=== PATIENT | female | born 1960 | race Caucasian/White ===

== ENCOUNTER 2018-05-08 05:49 | Inpatient (IN) | payer OTHER ==
[~2018-05-08] VITALS: Ht 165.1 cm; Wt 96.8 kg
[~2018-05-08 05:49] MED LIST: CHOL200052 PO; CYAN1TAB52 SL; DULO30CA2 PO
[2018-05-08] MEDS ORDERED: LACTATED RINGERS 1,000 ML IV SCH (06:36)
[2018-05-08] MEDS ORDERED: BUPIVACAINE/PF-EPI 0.5% 1:200K ONE (06:53)
[2018-05-08] MEDS ORDERED: BACITRACIN ZINC OINT 500U/GM, 0.9 GM ONE (06:53)
[2018-05-08] MEDS ORDERED: BACITRACIN 50,000 UNIT ONE (06:54)
[2018-05-08] MEDS ORDERED: LORazepam 2 MG/ML, 1ML IVPush PRN (07:00)
[2018-05-08] MEDS ORDERED: OXYcodone 5 MG/5 ML ORAL.SOL UDC PO PRN (07:00)
[2018-05-08] MEDS ORDERED: ONDANSETRON ODT 8 MG PO ONE (07:00)
[2018-05-08] MEDS ORDERED: GABAPENTIN 300 MG CAPSULE PO ONE (07:00)
[2018-05-08] MEDS ORDERED: FENTANYL PF 100 MCG/2ML IV PRN (07:00)
[2018-05-08] MEDS ORDERED: MIDAZOLAM 1 MG/ML, 2ML IV PRN (07:00)
[2018-05-08] MEDS ORDERED: ACETAMINOPHEN 500 MG TABLET PO ONE (07:00)
[2018-05-08] MEDS ORDERED: LABETALOL 5MG/ML, 20ML IV PRN (07:00)
[2018-05-08] MEDS ORDERED: ALBUTEROL SULFATE 2.5 MG/3 ML NPPB PRN (07:00)
[2018-05-08] MEDS ORDERED: MORPHINE SULFATE 4 MG/ML, 1ML IVPush PRN (07:00)
[2018-05-08] MEDS ORDERED: HYDROmorphone 1 MG/ML, 1ML IV PRN (07:00)
[2018-05-08] MEDS ORDERED: hydrALAzine 20 MG/ML, 1ML IV PRN (07:00)
[2018-05-08] MEDS ORDERED: SCOPOLAMINE PATCH, 1.5MG PATCH.TD72 TD PRN (07:00)
[2018-05-08] MEDS ORDERED: DIAZEPAM 5 MG/ML, 2ML IVPush PRN (07:00)
[2018-05-08] MEDS ORDERED: MEPERIDINE/PF 25MG/0.5ML IVPush PRN (07:00)
[2018-05-08] MEDS ORDERED: MEPERIDINE/PF 50 MG/ML ONE (07:12)
[2018-05-08] MEDS ORDERED: SUCCINYLCHOLINE 20 MG/ML, 10ML ONE (07:12)
[2018-05-08] MEDS ORDERED: CEFAZOLIN 1,000 MG ONE ×2 (07:12)
[2018-05-08] MEDS ORDERED: PROPOFOL 10 MG/ML, 20ML ONE (07:12)
[2018-05-08] MEDS ORDERED: PROPOFOL 50 ML ONE ×2 (07:12→08:31)
[2018-05-08] MEDS ORDERED: MIDAZOLAM 1 MG/ML, 2ML ONE (07:12)
[2018-05-08] MEDS ORDERED: FENTANYL PF 100 MCG/2ML ONE ×2 (07:12→10:20)
[2018-05-08] MEDS ORDERED: DEXAMETHASONE 4 MG/ML, 1ML ONE ×2 (07:12→07:13)
[2018-05-08] MEDS ORDERED: ROCURONIUM 10MG/ML,5ML ONE (07:12)
[2018-05-08] MEDS ORDERED: METOCLOPRAMIDE 5 MG/ML, 2ML ONE (07:13)
[2018-05-08] MEDS ORDERED: LIDOCAINE-MPF 2% ,5ML ONE (07:13)
[2018-05-08] MEDS ORDERED: OXYcodone 5 MG/5 ML ORAL.SOL UDC ONE (10:12)
[2018-05-08] MEDS ORDERED: BISACODYL 10 MG SUPP PR PRN (12:00)
[2018-05-08] MEDS ORDERED: MAGNESIUM HYDROXIDE 8%, 30ML UDC PO PRN (12:00)
[2018-05-08] MEDS ORDERED: CYCLOBENZAPRINE 10 MG TABLET PO PRN (12:00)
[2018-05-08] MEDS ORDERED: DIPHENHYDRAMINE 50 MG/ML, 1ML IVPush PRN (12:00)
[2018-05-08] MEDS ORDERED: DIPHENHYDRAMINE 50 MG CAPSULE PO PRN (12:00)
[2018-05-08] MEDS ORDERED: METHOCARBAMOL 1,000 MG in DEXTROSE 5% 100 ML IV ONE (12:00)
[2018-05-08] MEDS ORDERED: DIPHENHYDRAMINE 50 MG/ML, 1ML IM PRN (12:00)
[2018-05-08] MEDS ORDERED: ONDANSETRON 2MG/ML, 2ML IV PRN (12:00)
[2018-05-08] MEDS ORDERED: PROMETHAZINE 25 MG/ML, 1ML IM PRN (12:00)
[2018-05-08 13:05] VITALS: BP 107/66
[2018-05-08] MEDS: NS + 20MEQ KCL 1,000 ML IV SCH (13:18)
[2018-05-08] MEDS: DEXAMETHASONE 4 MG TABLET PO SCH ×2 (13:41→20:18)
[2018-05-08] MEDS ORDERED: CEFAZOLIN PMX 2GM/50ML 50 ML IVPB SCH (16:00)
[2018-05-08] MEDS: HYDROcodone/APAP 10/325 MG TABLET PO PRN ×3 (16:15→23:57)
[2018-05-08 20:09] VITALS: BP 118/74
[2018-05-08] MEDS: DULOXETINE 30 MG CAPSULE.DR PO SCH (20:18)
[2018-05-08] MEDS: METHOCARBAMOL 750 MG in DEXTROSE 5% 100 ML IV SCH (20:18)
[2018-05-08 23:28] VITALS: BP 119/73
[2018-05-08] MEDS: CEFAZOLIN 2,000 MG in SODIUM CHLORIDE 0.9% 50 ML IVPB SCH (23:57)
[2018-05-09] MEDS: DEXAMETHASONE 4 MG TABLET PO SCH ×2 (01:45→07:48)
[2018-05-09 03:09] VITALS: BP 141/82
[2018-05-09] MEDS: METHOCARBAMOL 750 MG in DEXTROSE 5% 100 ML IV SCH (04:05)
[2018-05-09] MEDS: NS + 20MEQ KCL 1,000 ML IV SCH (05:00)
[2018-05-09] MEDS: OXYcodone/APAP 5/325MG TABLET PO PRN ×2 (06:14→09:53)
[2018-05-09 06:57] VITALS: BP 116/67
[2018-05-09] MEDS: CEFAZOLIN 2,000 MG in SODIUM CHLORIDE 0.9% 50 ML IVPB SCH (07:48)
[2018-05-09] MEDS ORDERED: SENNA/DOCUSATE TABLET PO SCH (09:00)
[2018-05-09] MEDS: DULOXETINE 30 MG CAPSULE.DR PO SCH (09:23)
[2018-05-09] MEDS ORDERED: OXYC-307 PO (09:52)
[2018-05-09] MEDS ORDERED: METH750T87 PO (09:54)
[2018-05-09] MEDS ORDERED: METH4TAB2 PO (09:54)
[2018-05-10] MEDS ORDERED: METHOCARBAMOL 750 MG TABLET PO SCH (20:00)
== END 2018-05-09 10:30 | disposition home or self-care (01) | DRG 473 ==
LOC: ORIP 05:49 → 4NOR 11:20 → DCLOUNGE 05-09 10:15
PROVIDERS: ADMIT Neurological Surgery; ATTEND Neurological Surgery
PROC: 0RB30ZZ Excision of Cervical Vertebral Disc, Open Approach (ICD-10-PCS; 2018-05-08)
PROC: 4A11X4G Monitoring of Peripheral Nervous Electrical Activity, Intraoperative, External Approach (ICD-10-PCS; 2018-05-08)
PROC: 0RG20A0 Fusion of 2 or more Cervical Vertebral Joints with Interbody Fusion Device, Anterior Approach, Anterior Column, Open Approach (ICD-10-PCS; principal; 2018-05-08 07:30)
DX: M48.02 Spinal stenosis, cervical region (principal); M40.50 Lordosis, unspecified, site unspecified; Z87.891 Personal history of nicotine dependence; Z90.5 Acquired absence of kidney
CPT/HCPCS: 72040; C1713; G0378; J0690; J1100; J2175; J2250; J2704; J3010; J3360; J3480; J3490; Q0162; J0330; J2765; J2800; J7120